=== PATIENT | female | born 1955 | race Hispanic/Latino ===

== ENCOUNTER → 2024-02-21 15:22 | Outpatient (REF) | payer OTHER, SELFPAY | LOC: HWRAD 15:22 | PROVIDERS: ATTENDING PHYSICIAN Student in an Organized Health Care Education/Training Program | DX: G89.29 Other chronic pain (principal) | CPT/HCPCS: 73564 ==

== ENCOUNTER 2024-04-01 13:25 | Outpatient (RCR) | payer OTHER, SELFPAY | END 2024-04-01 23:59 | disposition home or self-care (01) | LOC: RPT 13:25 | PROVIDERS: ATTENDING PHYSICIAN Orthopaedic Surgery; FAMILY PHYSICIAN Student in an Organized Health Care Education/Training Program | DX: M17.11 Unilateral primary osteoarthritis, right knee (principal); M17.12 Unilateral primary osteoarthritis, left knee; Z73.6 Limitation of activities due to disability | CPT/HCPCS: 97163 ==

== ENCOUNTER 2024-04-02 11:39 | Emergency (ER) | payer OTHER, SELFPAY ==
[2024-04-02 11:43] VITALS: BP 145/90
--- NOTE | 2024-04-02 12:32 | ED.GENMED ---
History of Present Illness
General
Chief Complaint: Musculo-Skeletal Complaint
Source: patient
Time Seen by Provider: 04/02/24 12:14
Travel History
Have you had any contact with someone who has COVID-19?: No
Do you have any symptoms of coronavirus? Fever > 100 degrees, chills, cough, shortness of breath, sore throat, loss of taste or smell, muscle aches, or headache?: No
History of Present Illness
History of Present Illness:
68-year-old female with past medical history of hypertension and diabetes presenting to the emergency department for continued bilateral knee pain that has been ongoing for around 6 months. Patient reports that she had injections done into her
knees by primary care provider a little while ago but did not have any relief with this. She has taken intermittent Tylenol and ibuprofen with minimal relief. She also had a physical therapy appointment yesterday for the first time but states she
awoke with pain worse along the medial right lower patella. Pain in the left side is her usual. She denies any new falls, trauma, fevers or infectious symptoms or any other concerns.
Past History
Past History
ED Past Medical History: HTN, NIDDM and Psychiatric (Anxiety)
ED Past Surgical History: Gynecological
Social History
Tobacco: Non-smoker
Alcohol: None
Drug: None
Personal: Single
Living: with family
Employment: Employed
Family History
Family History: Hypertension
Review of Systems
Review of Systems
All Other Systems: ROS reviewed and negative except as documented in HPI and ROS
Phy Exam
Physical Exam
Physical Exam:
GENERAL: Alert , in no apparent distress
EYE: conjunctiva clear
Head: Normocephalic atraumatic
NECK: Supple,
ENT: mmm.
LUNGS: no acute respiratory distress
NEUROLOGICAL: Alert and oriented
SKIN: Warm and dry, skin intact.
MUSCULOSKELETAL: well perfused. Mild soft tissue swelling present to the right anterior patella but no joint effusion. Patient allows for full active and passive range of motion is able to ambulate with no noticeable limp. Extremities otherwise
warm and well-perfused.
PSYCH: Normal and appropriate interaction.
Scores
Heart Failure Risk
Heart Failure Risk Score: Not Applicable
Heart Score for Chest Pain Patients
STEMI patient?: Not applicable
Withdrawal Assessment of Alcohol
Withdrawal Assessment Completed?: Not applicable
Course
Vital Signs
Initial and Last Documented VS:
Initial Vital Signs
Temp Pulse Resp BP Pulse Ox
98.0 F 67 16 145/90 98
04/02/24 11:43 04/02/24 11:43 04/02/24 11:43 04/02/24 11:43 04/02/24 11:43
Last Documented Vital Signs
Temp Pulse Resp BP Pulse Ox
98.0 F 67 16 145/90 98
04/02/24 11:43 04/02/24 11:43 04/02/24 11:43 04/02/24 11:43 04/02/24 11:43
MDM/Problems Addressed
Differential Diagnosis Includes:
Osteoarthritis, no concern for fracture given no trauma, no concern for infection/septic joint
MDM/Problems Addressed:
68-year-old female presenting emergency department for continued bilateral knee pain that has been ongoing for 6 months. Patient reports she had injections done by her primary care provider but did not have any relief with this. On record review
patient had x-rays of her bilateral knees on February 20 which showed degenerative changes in both knees. She had physical therapy for the first time yesterday. Overall I have no suspicion for any emergent pathology. No indication for reimaging
given no trauma. I do feel he would benefit patient to follow-up with orthopedics given the chronicity of her symptoms and will provide her with information for this. Prescription for naproxen sent to pharmacy. Considered p.o. steroids however
given patient's history diet wanted to avoid this medication as to not elevate patient's blood sugars. She is stable for discharge home.
*Pulse Oximetry
Patient hypoxic: no
*Critical Care Note
Total Time (30-74mins, 75-104mins- exclusive of procedures): Not Applicable
Data Reviewed
Review of Other/Old Records Reveals: Records and Radiology Studies
Source: patient and family
ED Attending Note
-
Portions of this chart may have been created with voice recognition software.� Occasional wrong word or��sound alike� substitutions may have occurred due to the inherent limitations of voice recognition software.
Discharge Plan
Departure
Patient Disposition: Home (Routine Discharge)
Date of Disposition: 04/02/24
Time of Disposition: 12:32
Patient with high blood pressure during this ER visit?: Yes
Discharge Problem:
Arthralgia of both knees
Instructions: Knee Pain (DC)
Prescriptions:
New
naproxen 500 mg tablet
500 mg PO BID PRN (Reason: Pain) Qty: 15 0RF
No Action
hydrochlorothiazide 25 MG tablet
25 mg PO DAILY
atenolol 50 MG tablet
50 mg PO DAILY
trazodone 50 mg Tablet
50 mg PO DAILY
ibuprofen 800 mg Tablet
800 mg DAILY
duloxetine 30 mg Capsule,Delayed Release(Dr/Ec)
30 mg PO DAILY
Referrals:
Abdi Hankins MD [Active] - (Orthopedist)
Interventions
Interventions:
*General Assessment Last Done: 04/02/24 11:43
*ED COVID-19 Vaccine History Last Done: 04/02/24 11:43
Discharge Date and Time
Print Language: MALAGASY
== END 2024-04-02 13:12 | disposition home or self-care (01) ==
LOC: EMR 11:39
PROVIDERS: EMERGENCY PHYSICIAN Student in an Organized Health Care Education/Training Program
DX: M25.562 Pain in left knee (principal); M25.561 Pain in right knee; I10 Essential (primary) hypertension; E11.9 Type 2 diabetes mellitus without complications; F41.9 Anxiety disorder, unspecified; Z82.49 Family history of ischemic heart disease and other diseases of the circulatory system
CPT/HCPCS: 99282

== ENCOUNTER 2024-04-15 15:14 | Outpatient (RCR) | payer OTHER, SELFPAY | END 2024-04-15 23:59 | disposition home or self-care (01) | LOC: RPT 15:14 | PROVIDERS: ATTENDING PHYSICIAN Orthopaedic Surgery; FAMILY PHYSICIAN Student in an Organized Health Care Education/Training Program | DX: M17.11 Unilateral primary osteoarthritis, right knee (principal); M17.12 Unilateral primary osteoarthritis, left knee; Z73.6 Limitation of activities due to disability; M25.562 Pain in left knee; M25.561 Pain in right knee; R26.89 Other abnormalities of gait and mobility | CPT/HCPCS: 97010; 97110 ==

== ENCOUNTER 2024-07-30 06:26 | Day surgery (SDC) | payer OTHER, SELFPAY ==
[2024-07-14 10:34] VITALS: BMI 35.7
[2024-07-14 10:38] LABS: Hemoglobin 11.5 g/dL (12.0-16.0); Mean Corp Hgb Conc. 32.9 g/dL (33.0-37.0); Mean Corpuscular Hgb 27.9 pg (27.0-31.0); Mean Platelet Volume 10.1 fL (7.4-10.4); Platelet Count 219 10^3/uL (130-400); Red Blood Cell Count 4.12 10^6/uL (4.20-5.40); Red Cell Dist. Width 13.1 % (11.5-14.5); White Blood Cell Count 5.3 10^3/uL (4.8-10.8)
[2024-07-14 10:49] LABS: ALT (SGPT) 19 U/L (0-35); AST (SGOT) 26 U/L (14-36); Albumin 4.4 g/dl (3.5-5.0); Alkaline Phosphatase 81 U/L (38-126); Blood Urea Nitrogen 14 mg/dl (7-17); Calcium 9.4 mg/dl (8.4-10.2); Carbon Dioxide 25 mmol/L (22-30); Chloride 104 mmol/L (98-107); Estimated Creatinine Clearance 74 ml/min; Glucose 104 mg/dl (70-99); Potassium 4.5 mmol/L (3.5-5.1); Sodium 143 mmol/L (135-145); Total Bilirubin 0.3 mg/dl (0.2-1.3); eGFR > 60.00
[2024-07-14 12:58] LABS: Glycohemoglobin (HgbA1c) 6.4 % (4.0-5.6)
[2024-07-30] VITALS (16 sets, daily range): BP systolic 92–133; BP diastolic 63–86; PULSE 89; BMI 35.7
[2024-07-30] MEDS: CELEBREX 200 MG PO (08:21)
[2024-07-30] MEDS: NORMOSOL-R/PLASMALYTE-A 1000 IV ×2 (08:22→12:50)
[2024-07-30] MEDS: TYLENOL 650 MG PO ×5 (08:22→23:42)
[2024-07-30] MEDS: ROXICODONE 5 MG PO (11:26)
[2024-07-30] MEDS: DILAUDID 0.5 MG IV (11:48)
[2024-07-30] MEDS: ARIMIDEX 1 MG PO (13:14)
[2024-07-30] MEDS: CYMBALTA DELAYED RELEASE 90 MG PO (13:16)
[2024-07-30] MEDS: VITAMIN D3 (cholecalciferol) 10 MCG PO (13:16)
--- NOTE | 2024-07-30 14:42 | W.PN.UPDATE ---
Update Note
Progress Note Update
R knee OA s/p R TKA w/ Dr Mcneal 07/30/24
DVT prophylaxis - ASA, b/l venous foot pumps
HTN - + parameters - monitor BP
Documented asthma
Suspected JACKIE, sleep study pending
Chronic MALDONADO � likely 2* deconditioning, obesity
- Monitor O2
- Add supplemental O2 HS
- IS
- Resume home inhalers
GERD - add Pepcid HS
Normocytic anemia - non-invasive hgb in AM
HLD
Venous varicosities
Chronic dry cough
NAFLD
Depression
L breast CA, 2021, s/p lumpectomy and SLN bx
Prediabetes, A1c 6.4
[2024-07-30] MEDS: TORADOL 15 MG IV (16:25)
[2024-07-30] MEDS: ANCEF 5 IV ×2 (16:26→23:41)
[2024-07-30] MEDS: ROXICODONE 10 MG PO ×2 (16:30→20:45)
[2024-07-30] MEDS: ASPIRIN 325 MG PO (17:10)
--- NOTE | 2024-07-30 17:26 | W.PN.UPDATE ---
Update Note
Progress Note Update
Patient stable postop RTKR. OOB. Orthostatic hypotension. Pulm: nonlabored. CV: regular. RLE: NVI distally. Calf soft. Dressing CDI. Able to fully extend. Postop xray as expected. ASA for DVT prophylaxis. Plan for discharge home
tomorrow with family if stable.
[2024-07-30] MEDS: COLACE 100 MG PO (20:09)
[2024-07-30] MEDS: SENOKOT 17.2 MG PO (20:09)
[2024-07-30] MEDS: DECADRON 4 MG PO (20:09)
[2024-07-30] MEDS: BACTROBAN 2% OINTMENT 1 APPLIC NASAL (20:45)
[2024-07-30] MEDS: PEPCID 20 MG PO (21:57)
--- NOTE | 2024-07-31 00:07 | PTCARENOTE ---
Pt has been OOB to chair all evening. Pt was able to ambulate with RW and assist x1 to toilet to void. Pain has been well managed. Assessment ongoing.
[2024-07-31] MEDS: TYLENOL PO (04:37)
--- NOTE | 2024-07-31 07:25 | W.PN.ORTHO ---
Today's Communication / Plan
-
Plan for discharge home today with outpatient PT Saturday. Patient had been going to PT preop at and would like to continue at for PT.
Assessment
.
Distal Motor Intact: Yes
Dressing:
Clean, dry and intact.
Assessment:
Stable postop
Plan
.
Surgery / Date: 07/30/2024 R TKR Elizabet
DVT Prophylaxis: Aspirin
Activity:
Out of bed.
PT/OT
Discharge Plan: Home w/ Outpatient PT
Subjective
.
.:
Patient resting comfortably. Slept in reclining chair. Relative spent the night as well
Vital Signs and Labs
.
Vital Signs and Labs:
Lab Results
07/14/24 08:45
07/14/24 08:45
Temp Pulse Resp BP Pulse Ox
97.8 F 85 18 110/68 93
07/30/24 23:13 07/30/24 23:13 07/30/24 23:13 07/30/24 23:13 07/30/24 23:13
Non-invasive Hgb result: 12.8
Physical Exam
-
Pulm: nonlabored
CV: regular
RLE: Calf soft. NVI distally. Dressing CDI. Can fully extend
[2024-07-31 07:35] VITALS: BP 116/68
[2024-07-31] MEDS: CELEBREX 200 MG PO (08:42)
[2024-07-31] MEDS: VITAMIN D3 (cholecalciferol) 10 MCG PO (08:42)
[2024-07-31] MEDS: CYMBALTA DELAYED RELEASE 90 MG PO (08:42)
[2024-07-31] MEDS: ASPIRIN 325 MG PO (08:43)
[2024-07-31] MEDS: SENOKOT 17.2 MG PO (08:43)
[2024-07-31] MEDS: TYLENOL 650 MG PO ×2 (08:43→11:56)
[2024-07-31] MEDS: COLACE 100 MG PO (08:43)
[2024-07-31] MEDS: DECADRON 4 MG PO (08:44)
[2024-07-31] MEDS: ARIMIDEX 1 MG PO (08:44)
[2024-07-31] MEDS: BACTROBAN 2% OINTMENT 1 APPLIC NASAL (08:44)
[2024-07-31] MEDS: TENORMIN 50 MG PO (08:47)
[2024-07-31] MEDS: ROXICODONE 10 MG PO (09:00)
[2024-07-31 10:24] VITALS: BP 139/76; PULSE 100
--- NOTE | 2024-07-31 10:27 | W.PN.ORTHO ---
Today's Communication / Plan
-
Await PT and OT recs. Pt already has an outpatient PT appt scheduled at for Saturday.
D/c later today if remaining clinically stable.
Assessment
.
Distal Motor Intact: Yes
Dressing:
Scant areas of old incisional bleeding.
Assessment:
R knee OA s/p R TKA w/ Dr Mcneal 07/30/24
DVT prophylaxis - ASA, b/l venous foot pumps
HTN - + parameters - BPs stable
Documented asthma
Suspected JACKIE, sleep study pending
Chronic MALDONADO � likely 2* deconditioning, obesity
- O2 stable on RA POD 1
- Added supplemental O2 HS
- IS
- Resumed home inhalers
GERD - added Pepcid HS
Normocytic anemia - non-invasive hgb 12.8 POD 1
HLD
Venous varicosities
Chronic dry cough
NAFLD
Depression
L breast CA, 2021, s/p lumpectomy and SLN bx
Prediabetes, A1c 6.4
Plan
.
Surgery / Date: R TKA w/ Dr Mcneal 07/30/24
DVT Prophylaxis: Aspirin
Activity:
Out of bed.
PT/OT
Discharge Plan: Home w/ Outpatient PT
Subjective
.
.:
Patient examined resting in her chair.
Son Russel was present for interpretation (pt mostly Slovak speaking).
R knee pain 06/13 but was medicated w/n minutes of my eval.
Denies any other new significant complaints.
Eager for potential d/c today.
Vital Signs and Labs
.
Vital Signs and Labs:
Lab Results
07/14/24 08:45
07/14/24 08:45
Temp Pulse Resp BP Pulse Ox
97.9 F 88 16 116/68 96
07/31/24 07:35 07/31/24 08:47 07/31/24 07:35 07/31/24 08:47 07/31/24 09:30
Non-invasive Hgb result: 12.8
Physical Exam
-
HEENT: No pallor, cyanosis, or jaundice. Throat clear.
NECK: Supple. No JVD.
RESPIRATORY: Lungs clear to auscultation.
CVS: S1, S2 normal. RRR.�
ABDOMEN: Soft, non-tender. No distension. Obese.
EXTREMITIES: Expected post-surgical R knee edema. Strength equal, no calf pain with palpation/dorsiflexion. Calves soft.
BENDING SHED WORKER: AOx3. No focal deficits. tank farm gauger grossly intact
--- NOTE | 2024-07-31 10:27 | CM ---
Addendum entered by Linda Burnette RN 07/31/24 11:06:
Change in Discharge: Patient will now go home and do outpatient PT/OT. Family will transport.
Original Note:
Reviewed the chart notes and spoke with the patient and her son at the bedside. The patient resides with family in a one story home with seven steps to enter. The patient has no DME, no VN or SNF in the past. The patient confirmed her pharmacy of
choice is the [facility] [address] [place]. The patient's son will provide transportation home. CM consult for VN/homecare received. Discussed with the patient and son area VNs. VN selected. Referral sent via [facility]. CM continues to be
available to patient/family and is monitoring medical plan for needs at discharge.
Plan: Discharge to home with VN services.
--- NOTE | 2024-07-31 10:45 | W.DS.TRANS ---
DC Summary - Spine Surgeon
-
Discharge Instructions:
Sleep Apnea Risk High
Discharge Diagnosis/Procedures R knee OA s/p R TKA w/ Dr Mcneal 07/30/24
Diet Regular
Activity As tolerated,With Walker
Driving Restrictions Not until seen by your Dr
Bathing Restrictions OK to Shower
Other Services PT
Wound Care Dressing to be removed 1 week post-surgery.
Instructions:
Stand-Alone Forms: Total Hip/Knee Replacement D/C
Changes to Home Medications: Yes
Discharge Medications:
DC Medications w/original date entered in [employer]
atenolol 50 mg tablet 50 mg PO DAILY 10/29/14
duloxetine 30 mg capsule,delayed release 90 mg PO DAILY 11/27/22
albuterol sulfate 90 mcg/actuation aerosol inhaler 2 puff inhalation QID PRN sob 07/28/24
anastrozole 1 mg tablet 1 mg PO DAILY 07/28/24
cholecalciferol (vitamin D3) 10 mcg (400 unit) capsule (Vitamin D3) 10 mcg PO DAILY 07/28/24
mupirocin 2 % topical ointment 1 applic topical BID 07/28/24
acetaminophen 500 mg tablet (Tylenol Extra Strength) 1,000 mg (2 x 500 mg) PO Q6H #60 tabs 07/31/24
aspirin 325 mg tablet 325 mg PO DAILY #0 tabs 07/31/24
celecoxib 100 mg capsule 100 mg PO BID #0 caps 07/31/24
dexamethasone 4 mg tablet 4 mg PO Q12H #7 tabs 07/31/24
docusate sodium 100 mg capsule 100 mg PO BID #30 caps 07/31/24
hydrochlorothiazide 25 mg tablet 25 mg PO DAILY #1 tab 07/31/24
ondansetron HCl 4 mg tablet 4 mg PO Q6H PRN nausea #30 tabs 07/31/24
oxycodone 5 mg tablet 5 - 10 mg (1 - 2 x 5 mg) PO Q6H PRN moderate-severe pain #30 tabs 07/31/24
sennosides 8.6 mg tablet (Senna Laxative) 17.2 mg (2 x 8.6 mg) PO BID #30 tabs 07/31/24
Home Medication Changes
acetaminophen 500 mg tablet (Tylenol Extra Strength) 1,000 mg (2 x 500 mg) PO Q6H #60 tabs 07/31/24
aspirin 325 mg tablet 325 mg PO DAILY #0 tabs 07/31/24
celecoxib 100 mg capsule 100 mg PO BID #0 caps 07/31/24
dexamethasone 4 mg tablet 4 mg PO Q12H #7 tabs 07/31/24
docusate sodium 100 mg capsule 100 mg PO BID #30 caps 07/31/24
ondansetron HCl 4 mg tablet 4 mg PO Q6H PRN nausea #30 tabs 07/31/24
oxycodone 5 mg tablet 5 - 10 mg (1 - 2 x 5 mg) PO Q6H PRN moderate-severe pain #30 tabs 07/31/24
sennosides 8.6 mg tablet (Senna Laxative) 17.2 mg (2 x 8.6 mg) PO BID #30 tabs 07/31/24
Pending Results: No
[2024-07-31 12:00] VITALS: BP 115/69
[2024-07-31] MEDS: PREVNAR 20 0.5 ML IM (12:04)
== END 2024-07-31 13:10 | disposition home or self-care (01) ==
LOC: SDS 06:26
PROVIDERS: ATTENDING PHYSICIAN Orthopaedic Surgery
DX: M17.11 Unilateral primary osteoarthritis, right knee (principal)
CPT/HCPCS: 27447; 36415; 73560; 80053; 83036; 85027; 86850; 86900; 86901; 87070; 90677; 93005; 97110; 97116; 97163; 97166; 97530; 97535; C1713; C1776; G0009

== ENCOUNTER 2024-09-03 14:00 | Outpatient (RCR) | payer OTHER, SELFPAY | END 2024-09-03 23:59 | disposition home or self-care (01) | LOC: RPT 14:00 | PROVIDERS: ATTENDING PHYSICIAN Physician Assistant Medical; FAMILY PHYSICIAN Student in an Organized Health Care Education/Training Program | DX: Z47.1 Aftercare following joint replacement surgery (principal); Z96.651 Presence of right artificial knee joint; Z73.6 Limitation of activities due to disability | CPT/HCPCS: 97110; 97112; 97162; 97530 ==

== ENCOUNTER 2024-09-30 14:07 | Outpatient (RCR) | payer OTHER, SELFPAY | END 2024-10-02 05:47 | disposition home or self-care (01) | LOC: RPT 14:07 | PROVIDERS: ATTENDING PHYSICIAN Physician Assistant Medical; FAMILY PHYSICIAN Student in an Organized Health Care Education/Training Program | DX: Z47.1 Aftercare following joint replacement surgery (principal); Z96.651 Presence of right artificial knee joint; Z73.6 Limitation of activities due to disability | CPT/HCPCS: 97110; 97530 ==

== ENCOUNTER → 2024-10-09 10:28 | Outpatient (REF) | payer OTHER, SELFPAY | LOC: WDC 10:28 | PROVIDERS: ATTENDING PHYSICIAN Family Medicine Geriatric Medicine; FAMILY PHYSICIAN Family Medicine | DX: Z12.31 Encounter for screening mammogram for malignant neoplasm of breast (principal) | CPT/HCPCS: 77063; 77067 ==

== ENCOUNTER 2024-12-30 08:47 | Outpatient (RCR) | payer OTHER, SELFPAY | END 2024-12-30 23:59 | disposition home or self-care (01) | LOC: RPT 08:47 | PROVIDERS: ATTENDING PHYSICIAN Nurse Practitioner Adult Health; FAMILY PHYSICIAN Student in an Organized Health Care Education/Training Program | DX: C50.412 Malignant neoplasm of upper-outer quadrant of left female breast (principal); L90.5 Scar conditions and fibrosis of skin; I89.8 Other specified noninfective disorders of lymphatic vessels and lymph nodes; Z79.811 Long term (current) use of aromatase inhibitors | CPT/HCPCS: 97110; 97140; 97162; 97530 ==

== ENCOUNTER 2025-01-13 08:50 | Outpatient (RCR) | payer OTHER, SELFPAY | END 2025-01-13 23:59 | disposition home or self-care (01) | LOC: RPT 08:50 | PROVIDERS: ATTENDING PHYSICIAN Nurse Practitioner Adult Health; FAMILY PHYSICIAN Student in an Organized Health Care Education/Training Program | DX: C50.412 Malignant neoplasm of upper-outer quadrant of left female breast (principal); L90.5 Scar conditions and fibrosis of skin; I89.8 Other specified noninfective disorders of lymphatic vessels and lymph nodes; Z79.811 Long term (current) use of aromatase inhibitors | CPT/HCPCS: 97110; 97140; 97530 ==

== ENCOUNTER → 2025-03-03 14:10 | Outpatient (REF) | payer OTHER, SELFPAY | LOC: WDC 14:10 | PROVIDERS: ATTENDING PHYSICIAN Family Medicine Geriatric Medicine | DX: R92.2 Inconclusive mammogram (principal); Z79.811 Long term (current) use of aromatase inhibitors | CPT/HCPCS: 76641; 77080 ==

== ENCOUNTER 2025-04-30 14:55 | Emergency (ER) | payer OTHER, SELFPAY ==
[2025-04-30] VITALS (7 sets, daily range): BP systolic 115–145; BP diastolic 73–93; BMI 35.5
[2025-04-30 15:25] LABS: % Basophils 0.6 % (0-2); % Eosinophils 2.3 % (0-6); % Immature Granulocytes 0.5 % (0-0.5); % Lymphocytes 26.9 % (20.5-51.1); % Monocytes 7.9 % (1.7-9.3); % Neutrophils 61.8 % (42.2-75.2); Absolute Basophils 0.1 10^3/uL (0-0.2); Absolute Eosinophils 0.2 10^3/uL (0-0.7); Absolute Lymphocytes 2.2 10^3/uL (1.2-3.4); Absolute Monocytes 0.7 10^3/uL (0.1-0.6); Absolute Neutrophils 5.2 10^3/uL (1.4-6.5); Hematocrit 36.9 % (37.0-47.0); Hemoglobin 12.4 g/dL (12.0-16.0); Mean Corp Hgb Conc. 33.6 g/dL (33.0-37.0); Mean Corpuscular Hgb 29.7 pg (27.0-31.0); Mean Corpuscular Volume 88.3 fL (81.0-99.0); Mean Platelet Volume 9.4 fL (7.4-10.4); Nucleated Red Blood Cells % 0 %; Platelet Count 218 10^3/uL (130-400); Red Blood Cell Count 4.18 10^6/uL (4.20-5.40); White Blood Cell Count 8.3 10^3/uL (4.8-10.8)
[2025-04-30 15:37] LABS: ALT (SGPT) 34 U/L (0-35); AST (SGOT) 33 U/L (14-36); Albumin 4.8 g/dl (3.5-5.0); Alkaline Phosphatase 58 U/L (38-126); Blood Urea Nitrogen 14 mg/dl (7-17); Calcium 9.4 mg/dl (8.4-10.2); Carbon Dioxide 27 mmol/L (22-30); Chloride 105 mmol/L (98-107); Glucose 95 mg/dl (70-99); Sodium 141 mmol/L (135-145); Total Bilirubin 0.4 mg/dl (0.2-1.3); Total Protein 7.5 g/dl (6.3-8.2); eGFR > 60.00
[2025-04-30 15:40] LABS: Troponin I < 0.012 ng/ml
--- NOTE | 2025-04-30 18:51 | ED.GENMED ---
History of Present Illness
General
Chief Complaint: Blood Pressure Problem
Source: patient and family
Exam Limitations: none
Time Seen by Provider: 04/30/25 17:59
Nursing documentation reviewed up to this point in time: agreed with
History of Present Illness
History of Present Illness:
Patient is a 69-year-old female with history hypertension, history of breast CA who presents to the emergency department with concerns of elevated blood pressure. Patient reports that over the past 3 days her blood pressure has been running higher
than typical and she has been experiencing a mild headache and nausea. She states that she feels very tired. She also has an occasional feeling of shortness of breath. She denies any associated chest pain or pleuritic component to her shortness
of breath. She denies any productive cough. She denies any back pain, lightheadedness or dizziness. No neck pain or fevers. No known sick contacts
Patient states that this headache is not the 'worst of her life'. She denies any changes in her vision or confusion. No vomiting or abdominal pain.
Patient denies any recent falls or head trauma.
Past History
Past History
ED Past Medical History: HTN, NIDDM and Psychiatric (Anxiety)
ED Past Surgical History: Gynecological
Social History
Tobacco: Non-smoker
Alcohol: None
Drug: None
Personal: Single
Living: with family
Employment: Employed
Family History
Family History: Hypertension
Review of Systems
Review of Systems
Allergies reviewed?: Yes
All Other Systems: ROS reviewed and negative except as documented in HPI and ROS
Phy Exam
Physical Exam
Physical Exam:
- Vitals: Mildly hypertensive, otherwise vital signs stable. Afebrile
- General: Well appearing in no distress
- HEENT: Normocephalic, atraumatic. Pupils equal round reactive to light bilaterally. EOMIs intact bilaterally. Moist oral mucosa
- Cardiovascular: No murmurs, normal heart rate, regular rhythm, No chest wall tenderness
- Pulmonary: No respiratory distress, breath sounds are clear and equal
- Abdomen: Mildly distended. Although soft and nontender throughout. No rebound tenderness or guarding. Negative Mcintosh sign.
- Neurologic: A& O x 3: Fluid speech excellent strength all extremities, no coordination deficits
- Psychiatric: Appropriate mental status, normal insight and judgement
- Extremities: Nontender, no edema, moves all extremities equally
- Skin: No rash, no lesions
Course
Orders/Labs/Results
Orders:
Orders
04/30/25 14:57
Electrocardiogram (*1) Urgent
Reason for Study: Hypertension, Benign
EKG- Treatment ONCE
04/30/25 15:09
Complete Blood Count/With Diff Urgent
Comprehensive Metabolic Panel Urgent
TSH Reflex To Free T4 Urgent
Comment: ADD ON
Troponin I Urgent
04/30/25 18:30
0.9% Sodium Chloride 1000 ml [Nss] 1,000 ml IV BOLUS
Ketorolac [Toradol] 15 mg IV NOW STA
04/30/25 18:31
Add On- LAB Urgent
Tests Added?: TSH w/ reflex to T4
CR Chest - 2 Views Urgent
Comment:
Reason For Exam: SOB
Abnormal Lab Results
04/30/25
15:09
RBC 4.18 L 10^6/uL
(4.20-5.40)
Hct 36.9 L %
(37.0-47.0)
Absolute Monos (auto) 0.7 H 10^3/uL
(0.1-0.6)
04/30/25 15:09
04/30/25 15:09
Vital Signs
Initial and Last Documented VS:
Initial Vital Signs
Temp Pulse Resp BP Pulse Ox
97.7 F 85 16 145/93 99
04/30/25 15:03 04/30/25 15:03 04/30/25 15:03 04/30/25 15:03 04/30/25 15:03
Last Documented Vital Signs
Temp Pulse Resp BP Pulse Ox
97.7 F 79 16 120/91 98
04/30/25 15:03 04/30/25 21:15 04/30/25 21:15 04/30/25 21:00 04/30/25 21:15
MDM/Problems Addressed
Differential Diagnosis Includes:
Not limited to: Viral illness, acute dehydration, pneumonia, bronchitis, hyperthyroid, hypertensive emergency, etc.
MDM/Problems Addressed:
69-year-old female presenting with a few days of elevated BP at home as well as mild headache. She also reports mild shortness of breath. No fever, cough, or exertional chest pain. Patient hypertensive on arrival although improved by my
assessment. She is otherwise stable vital signs. On exam�patient well-appearing, no apparent distress. She is alert and oriented x 3 without any focal neurologic deficits. Heart regular rate and rhythm with clear breath sounds bilaterally. No
evidence of lower extremity edema.
EKG sent in triage shows normal sinus rhythm, 86 bpm without acute ischemic changes or evidence of arrhythmia. Basic labs were sent without clinically significant abnormalities. Troponin undetectable. At this time�no evidence of endorgan damage
and blood pressure has decreased to 126/80 by my evaluation without intervention. Given history of recent palpitations�will check TSH. Will obtain chest x-ray. Will give IV fluids, Toradol for headache and reassess.
Update: Chest x-ray without acute findings. TSH within normal limits. Ultimately�workup in emergency department negative. Patient remains very well-appearing, in no apparent distress and states her headache is improved. Her blood pressure has
improved without intervention�no indication of hypertensive emergency or endorgan damage. Symptoms possibly secondary to dehydration versus viral illness. Do not suspect acute cardio/pulmonary or central process. Feel stable for discharge home
with supportive care outpatient and primary care follow-up. Strict return precautions discussed.
Chronic conditions affecting care:
Hypertension
Acute Exacerbation and/or Progression of Chronic Illness:
Acutely hypertensive
*Radiology
Radiology exam reviewed: preliminary read by ED provider (Chest x-ray reviewed by me-no acute abnormalities) and radiology read reviewed
*Pulse Oximetry
SaO2: 99
Oxygen Mode of Delivery: Room air
Patient hypoxic: no
*EKG
Interpreted by ED Provider?: Yes
EKG Intrepretation Date: 04/30/25
Interpretation: normal
Comparison EKG: no changes
Heart Rate: 86
Rate: normal
Rhythm: sinus
Suffern: normal axis
Interval: normal QT interval
QRS Pattern: normal QRS
Ischemia: no ischemia
*Twisting Machine Operator Interpretation
Rate: normal
Interpretation: normal
Heart Rate: 76
Rhythm: sinus
*Critical Care Note
Total Time (30-74mins, 75-104mins- exclusive of procedures): Not Applicable
ED Attending Note
-
Portions of this chart may have been created with voice recognition software.� Occasional wrong word or��sound alike� substitutions may have occurred due to the inherent limitations of voice recognition software.
Discharge Plan
Departure
Patient Disposition: Home (Routine Discharge)
Date of Disposition: 04/30/25
Time of Disposition: 20:54
Patient with high blood pressure during this ER visit?: Yes
Condition: Good
Covid-19: Not Applicable
Discharge Problem:
Hypertension, Headache
Instructions: High Blood Pressure (DC), Headache in adults - ED discharge instructions, BLOOD PRESSURE
Prescriptions:
No Action
atenolol 50 MG tablet
50 mg PO DAILY
duloxetine 30 mg Capsule,Delayed Release(Dr/Ec)
90 mg PO DAILY
anastrozole 1 mg Tablet
1 mg PO DAILY
albuterol sulfate 90 mcg/actuation Hfa Aerosol Inhaler
2 puff INHALATION QID PRN (Reason: sob)
cholecalciferol (vitamin D3) [Vitamin D3] 10 mcg (400 unit) Capsule
10 mcg PO DAILY
mupirocin 2 % Ointment
1 applic TOPICAL BID
docusate sodium 100 mg Capsule
100 mg PO BID Qty: 30 0RF
sennosides [Senna Laxative] 8.6 mg Tablet
17.2 mg PO BID Qty: 30 0RF
acetaminophen [Tylenol Extra Strength] 500 mg tablet
1,000 mg PO Q6H Qty: 60 0RF
Rx Instructions:
DO NOT exceed >4000 mg daily.
aspirin 325 mg Tablet
325 mg PO DAILY Qty: 0 0RF
Rx Instructions:
Take daily x4 weeks for blood clot prevention.
ondansetron HCl 4 mg Tablet
4 mg PO Q6H PRN (Reason: nausea) Qty: 30 0RF
Rx Instructions:
Prescribed by surgeon's office pre-operatively.
dexamethasone 4 mg Tablet
4 mg PO Q12H Qty: 7 0RF
Rx Instructions:
Restart night of discharge and take every 12 hours until finished.
Take with food.
hydrochlorothiazide 25 MG tablet
25 mg PO DAILY Qty: 1 0RF
Rx Instructions:
HOLD if systolic blood pressure <130 while on Oxycodone
celecoxib 100 mg Capsule
100 mg PO BID Qty: 0 0RF
Rx Instructions:
Take with food.
DO NOT take within 2 hours of Aspirin.
oxycodone 5 mg Tablet
5 - 10 mg PO Q6H PRN (Reason: moderate-severe pain) Qty: 30 0RF
Rx Instructions:
1 tab for moderate pain, 2 if severe.
Dx total joint.
Referrals:
NONE,* [Family Provider, Internal Medicine]
Activity Restrictions/Additional Instructions:
REGRESE A URGENCIAS SI PRESENTA DOLOR DE JOI O ENA INTENSO, FIEBRE KETTY, TOS PRODUCTIVA, DOLOR EN EL PECHO O DIFICULTAD PARA RESPIRAR, CAMBIOS EN LA VISI�N O EL ESTADO MENTAL, DOLOR DE ESPALDA INTENSO, ENTUMECIMIENTO/HORMIGUEO O DEBILIDAD EN
LAS EXTREMIDADES, O CUALQUIER OTRA INQUIETUD.
- [place] se mencion�, lizbeth an�lisis de laboratorio y radiograf�a de t�rax no mostraron anomal�as agudas. Le administraron l�quidos intravenosos y Toradol intravenoso en urgencias. Lizbeth s�ntomas podr�an deberse a zachariah enfermedad viral o deshidrataci�n.
- Mant�ngase elbert hidratado en casa. Puede vickie Tylenol o Motrin seg�n sea necesario para el dolor de joi.
- Contin�e tomando lizbeth medicamentos para la presi�n arterial en casa.
- Consulte con tinoco m�dico de cabecera para zachariah evaluaci�n/manejo adicional y para asegurar que los s�ntomas mejoren.
Vigile lizbeth s�ntomas de cerca y regrese a urgencias ante cualquier empeoramiento pedro pablo, nuevos s�ntomas o cualquier otra inquietud.
Interventions
Interventions:
*Risk Screen - Suicide Last Done: 04/30/25 17:10
*General Assessment Last Done: 04/30/25 17:09
*Neglect/Abuse Screening Last Done: 04/30/25 17:10
*ED- Fall Risk Assessment Last Done: 04/30/25 17:09
*ED COVID-19 Vaccine History Last Done: 04/30/25 17:09
*Nursing Disposition Last Done: 04/30/25 21:32
ED- Cardiac Assessment Last Done: 04/30/25 17:15
ED- Neurological Assessment Last Done: 04/30/25 17:15
ED- Pulmonary Assessment Last Done: 04/30/25 17:15
Discharge Date and Time
Discharge Date/Time: 04/30/25 21:33
Print Language: MAORI
[2025-04-30] MEDS: NSS 1000 IV (18:52)
[2025-04-30] MEDS: TORADOL 15 MG IV (18:55)
--- NOTE | 2025-04-30 18:58 | EDRN ---
Report on patient, introduced myself, she was just medicated and will re-assess
[2025-04-30 19:54] LABS: TSH Reflex To Free T4 4.56 uIU/ml (0.47-4.68)
== END 2025-04-30 21:33 | disposition home or self-care (01) ==
LOC: EMR 14:55
PROVIDERS: EMERGENCY PHYSICIAN Student in an Organized Health Care Education/Training Program
DX: R51.9 Headache, unspecified (principal); I10 Essential (primary) hypertension; E11.9 Type 2 diabetes mellitus without complications; Z85.3 Personal history of malignant neoplasm of breast
CPT/HCPCS: 96374; 96361; 99284; 71046; 80053; 84443; 84484; 85025; 93005